=== PATIENT | male | born 1985 | race African-American/Black ===

== ENCOUNTER 2017-12-09 19:23 | Emergency (ER) | payer SELFPAY ==
[~2017-12-09] VITALS: Ht 177.8 cm; Wt 72.0 kg
[2017-12-09 20:13] LABS: SOURCE URINE
[2017-12-09 20:19] LABS: APPEARANCE SL.HAZY ((CLEAR)); BILIRUBIN NEGATIVE; BLOOD NEGATIVE; COLOR YELLOW ((YELLOW)); GLUCOSE (STRIP) NEGATIVE; KETONES NEGATIVE; LEUKOCYTES LARGE; NITRITE NEGATIVE; PROTEIN (STRIP) 30; SPECIFIC GRAVITY 1.021 (1.000-1.030); UROBILINOGEN 0.2 MG/DL (0.2-1.0)
[2017-12-09 20:46] LABS: RED BLOOD CELLS 0-5 /HPF (0-5); WHITE BLOOD CELLS TNTC /HPF (0-5)
[2017-12-09 21:04] LABS: BACTERIA RARE /HPF; EPITHELIAL CELLS NONE SEEN /HPF; MUCUS 1+ /LPF
[2017-12-09 22:34] VITALS: BP 147/87
[2017-12-10 12:34] LABS: CHLAMYDIA TRACHOMATIS POSITIVE; NEISSERIA GONORRHOEAE POSITIVE
== END 2017-12-09 22:35 | disposition home or self-care (01) ==
LOC: EME 19:23
PROVIDERS: Physician Assistant
DX: N34.2 Other urethritis (principal); R05 Cough
CPT/HCPCS: 71046; 81003; 87491; 87591; 94640; 99281; 99284; J0696